=== PATIENT | female | born 1965 | race Caucasian/White ===

== ENCOUNTER → 2017-08-15 | Outpatient (CLI) | payer MEDICARE ==
[~2017-08-15] MED LIST: FLEXERIL PO; HYDROCODON-ACE1 EAC7 PO; LEVOTHYROXIN0.088 MG
== END ==
LOC: M.RAD 15:47
DX: Z12.31 Encounter for screening mammogram for malignant neoplasm of breast (principal); N91.2 Amenorrhea, unspecified; E03.9 Hypothyroidism, unspecified; Z78.0 Asymptomatic menopausal state